=== PATIENT | male | born 1950 | race Caucasian/White ===

== ENCOUNTER 2017-06-23 12:37 | Observation (INO) | payer MEDICARE ==
[~2017-06-23] VITALS: Ht 185.4 cm; Wt 155.0 kg
[2017-06-23] MEDS ORDERED: SODIUM CHLORIDE 0.9% 1,000 ML IV ONE (13:19)
[2017-06-23 13:23] VITALS: BP 140/82
[2017-06-23] MEDS ORDERED: PLEASE ENTER HEIGHT AND WEIGHT MC SCH (13:30)
[2017-06-23] MEDS ORDERED: ASPIRIN 325 MG TABLET EC PO ONE (13:30)
[2017-06-23] MEDS ORDERED: ASPIRIN 325 MG TABLET EC ONE (13:32)
[2017-06-23] MEDS ORDERED: ASPI-621 PO (13:33)
[2017-06-23] MEDS ORDERED: MELO15TA24 PO (13:35)
[2017-06-23] MEDS ORDERED: MULT-6 PO (13:35)
[2017-06-23] MEDS ORDERED: CHOL100015 PO (13:35)
[2017-06-23] MEDS ORDERED: ISOS30TA8 PO (13:35)
[2017-06-23] MEDS ORDERED: METO25TA91 PO (13:35)
[2017-06-23] MEDS ORDERED: ROSU5TAB PO (13:35)
[2017-06-23] MEDS ORDERED: OMEG1CAP23 PO (13:36)
[2017-06-23] MEDS ORDERED: Vitamin C PO (13:36)
[2017-06-23] MEDS ORDERED: FENTANYL PF 100 MCG/2ML ONE ×2 (14:21→14:44)
[2017-06-23] MEDS ORDERED: MIDAZOLAM 1 MG/ML, 5ML ONE (14:21)
[2017-06-23] MEDS ORDERED: TICAGRELOR 90 MG TABLET ONE (14:22)
[2017-06-23] MEDS ORDERED: HEPARIN 1,000 UNITS/ML, 10ML ONE (14:22)
[2017-06-23] MEDS ORDERED: BIVALIRUDIN 250 MG ONE ×2 (14:22→14:56)
[2017-06-23] MEDS ORDERED: LIDOCAINE 2%, 2ML ONE (14:22)
[2017-06-23] MEDS ORDERED: VERAPAMIL 2.5 MG/ML, 2ML ONE (14:22)
[2017-06-23] MEDS ORDERED: MIDAZOLAM 1 MG/ML, 2ML ONE (14:44)
[2017-06-23] MEDS ORDERED: DIPHENHYDRAMINE 50 MG/ML, 1ML ONE (14:45)
[2017-06-23] MEDS ORDERED: SODIUM CHLORIDE 0.9% 1,000 ML IV SCH (15:39)
[2017-06-23] MEDS ORDERED: ONDANSETRON 2MG/ML, 2ML IVPush PRN (16:00)
[2017-06-23] MEDS ORDERED: BISACODYL 5 MG EC TABLET PO PRN (16:00)
[2017-06-23] MEDS ORDERED: ACETAMINOPHEN 325 MG TABLET PO PRN (16:00)
[2017-06-23] MEDS ORDERED: ZOLPIDEM 5MG TABLET PO PRN (16:00)
[2017-06-23 16:07] VITALS: BP 143/83
[2017-06-23] MEDS ORDERED: PHYT100T PO (16:18)
[2017-06-23 19:37] VITALS: BP 131/80
[2017-06-23] MEDS: TICAGRELOR 90 MG TABLET PO SCH (20:29)
[2017-06-23] MEDS ORDERED: HYDROcodone/APAP 5/325 TABLET PO PRN (20:30)
[2017-06-23] MEDS ORDERED: ATORVASTATIN 40 MG TABLET PO SCH (21:00)
[2017-06-24 02:00] VITALS: BP 144/82
[2017-06-24 08:45] VITALS: BP 163/88
[2017-06-24] MEDS ORDERED: METOPROLOL SUCCINATE 25 MG TAB.ER.24H PO SCH (09:00)
[2017-06-24] MEDS ORDERED: ISOSORBIDE MONONITRATE ER 30 MG TABLET PO SCH (09:00)
[2017-06-24] MEDS ORDERED: ASPIRIN 81 MG TABLET EC PO SCH ×2 (09:00)
[2017-06-24] MEDS ORDERED: MULTIVITAMIN 1 TABLET PO SCH (09:00)
[2017-06-24] MEDS ORDERED: MELOXICAM 15 MG TABLET PO SCH (09:00)
[2017-06-24] MEDS: TICAGRELOR 90 MG TABLET PO SCH (10:49)
[2017-06-24] MEDS ORDERED: TICA90TA PO (12:11)
== END 2017-06-24 14:45 | disposition home or self-care (01) ==
LOC: CACL 12:37 → ORIP 15:39 → 5SO 16:13 → DCLOUNGE 06-24 14:19
PROVIDERS: ADMIT Internal Medicine Cardiovascular Disease; ATTEND Internal Medicine Cardiovascular Disease
DX: I25.10 Atherosclerotic heart disease of native coronary artery without angina pectoris (principal); E78.00 Pure hypercholesterolemia, unspecified; J45.909 Unspecified asthma, uncomplicated; R03.0 Elevated blood-pressure reading, without diagnosis of hypertension; E78.5 Hyperlipidemia, unspecified
CPT/HCPCS: 93458; 99156; 99157; C1725; C1769; C1874; C1887; C1894; C9600; C9601; G0378; J0583; J1200; J1644; J2250; J3010; J3490; J7030; Q9967

== ENCOUNTER → 2019-06-25 | Outpatient (CLI) | payer MEDICARE ==
[~2019-06-25] MED LIST: ASPI81TA45 PO; CHOL100015 PO; ISOS30TA8 PO; MELO15TA24 PO; METO25TA91 PO; MULT-6 PO; OMEG1CAP23 PO; PHYT100T PO; REGADENOSON 0.4 MG/5 ML SYRINGE ONE; ROSU5TAB PO; TICA90TA PO; Vitamin C PO
== END | disposition home or self-care (01) ==
LOC: RAD 16:14
PROVIDERS: ATTEND Internal Medicine Cardiovascular Disease
DX: Z01.810 Encounter for preprocedural cardiovascular examination (principal); I25.119 Atherosclerotic heart disease of native coronary artery with unspecified angina pectoris
CPT/HCPCS: 78452; 93017; A9502; J2785